=== PATIENT | male | born 1955 | race Caucasian/White ===

== ENCOUNTER 2018-03-28 18:48 | Emergency (ER) | payer OTHER ==
[~2018-03-28] VITALS: Ht 182.8 cm; Wt 113.4 kg
[~2018-03-28 18:48] MED LIST: ALBUTEROL0.09 MG/A2 IH; ASPIRIN81 M1 PO; NIASPAN500 MG PO; OMEPRAZOLE20 MG PO; SIMVASTATIN20 MG PO; TRICOR145 MG PO; VIBRAMYCIN100 MG PO
[2018-03-28] MEDS ORDERED: NORCO 5-325 TA1 EACH PO (20:41)
[2018-03-28] MEDS ORDERED: ZOFRAN4 MG PO (20:41)
[2018-03-28] MEDS ORDERED: AUGMENTIN 875875 MG PO (20:44)
== END 2018-03-28 21:05 | disposition home or self-care (01) ==
LOC: ED 18:48
DX: S02.2XXA Fracture of nasal bones, initial encounter for closed fracture (principal); S01.21XA Laceration without foreign body of nose, initial encounter; Z23 Encounter for immunization; Z79.899 Other long term (current) drug therapy; Z79.82 Long term (current) use of aspirin; W22.8XXA Striking against or struck by other objects, initial encounter; Y93.89 Activity, other specified; Y92.89 Other specified places as the place of occurrence of the external cause; Y99.8 Other external cause status

== ENCOUNTER → 2018-04-29 | Outpatient (CLI) | payer OTHER ==
[~2018-04-29] MED LIST changes: +AUGMENTIN 875875 MG PO; +NORCO 5-325 TA1 EACH PO; +ZOFRAN4 MG PO
[2018-04-29 10:25] LABS: BASO # 0.1 10*3/uL (0.0-0.1); BASO % 0.6 % (0.0-1.0); EOS # 0.1 10*3/uL (0.0-0.4); EOS % 1.8 % (1.0-4.0); HEMATOCRIT 48.4 % (42.0-52.0); HEMOGLOBIN 15.1 g/dl (14.0-18.0); LYMPH # 1.9 10*3/uL (1.3-4.4); LYMPH % 24.7 % (27.0-41.0); MEAN CELL VOLUME 89.8 fl (80.0-94.0); MEAN CORPUSCULAR HGB CONC 31.2 g/dl (33.0-37.0); MEAN PLATELET VOLUME 8.8 fl (9.6-12.3); MONO # 0.6 10*3/uL (0.1-1.0); MONO % 8.1 % (3.0-9.0); NEUT % 64.2 % (47.0-73.0); PLATELET COUNT AUTOMATED 328 10*3/uL (130-400); RED BLOOD COUNT 5.39 10*6/uL (4.50-5.90); RED CELL DISTRI WIDTH 14.6 % (0-14.5); WHITE BLOOD COUNT 7.8 10*3/uL (4.8-10.8)
[2018-04-29 10:52] LABS: ALBUMIN 3.9 gm/dl (3.1-4.5); ALKALINE PHOSPHATASE 50 U/L (45-117); BUN 18 mg/dl (7-24); CHLORIDE 109 mmol/L (98-107); CHOLESTEROL 111 mg/dL (<200); CREATININE 1.01 mg/dL (0.70-1.30); HDL CHOLESTEROL 38 mg/dl (40-60); LDL CHOLESTEROL 49 mg/dL (9-159); POTASSIUM 4.5 mmol/L (3.5-5.1); SGOT/AST 16 IU/L (3-35); SGPT/ALT 31 U/L (12-78); SODIUM 143 mmol/L (136-145); TOTAL PROTEIN 7.3 gm/dL (6.4-8.2); TRIGLYCERIDES 118 mg/dl (<150); VLDL CHOLESTEROL 24 mg/dL (6-40)
== END | disposition home or self-care (01) ==
LOC: LAB 09:43
PROVIDERS: Physician Assistant Medical
DX: Z12.5 Encounter for screening for malignant neoplasm of prostate (principal); E78.49 Other hyperlipidemia; I10 Essential (primary) hypertension; R73.01 Impaired fasting glucose

== ENCOUNTER 2019-02-19 04:53 | Inpatient (IN) | payer OTHER ==
[~2019-02-19] VITALS: Ht 185.4 cm; Wt 111.1 kg
[2019-02-19] VITALS (15 sets, daily range): BP systolic 92–142; BP diastolic 38–65
[~2019-02-19 04:53] MED LIST changes: +TRICOR145 M1 PO; -TRICOR145 MG PO
--- NOTE | 2019-02-19 05:10 | NUR ---
PATIENT REFUSED PAIN MEDCATION AT THIS TIME. DENIES PAIN STATES HE JUST FEELS UNCOMFORTABLE DUE TO BEING DISTENDED. DR FRAGA NOTIFIED OF THIS AND DILAUDID HELD.
--- NOTE | 2019-02-19 05:39 | NUR ---
PATIENT IN BED AOX4. TALKING WITH FAMILY AT BEDSIDE. NO DISTRESS NOTED. NORMAL SALINE RUNNING ON PRESSURE BAG AT THIS TIME. BP 92/49. RN WILL CONT TO MONITOR. DR FRAGA AWARE OF PRESSURE AT THIS TIME.
[2019-02-19 05:51] LABS: ALBUMIN 3.1 gm/dl (3.1-4.5); ALKALINE PHOSPHATASE 34 U/L (45-117); BUN 22 mg/dl (7-24); CHLORIDE 113 mmol/L (98-107); CREATININE 1.22 mg/dL (0.70-1.30); LIPASE 82 U/L (73-393); POTASSIUM 4.1 mmol/L (3.5-5.1); SGOT/AST 18 IU/L (3-35); SGPT/ALT 25 U/L (12-78); SODIUM 145 mmol/L (136-145); TOTAL PROTEIN 5.2 gm/dL (6.4-8.2)
[2019-02-19 05:54] LABS: BASO # 0.1 10*3/uL (0.0-0.1); BASO % 0.5 % (0.0-1.0); EOS # 0.2 10*3/uL (0.0-0.4); EOS % 1.6 % (1.0-4.0); HEMATOCRIT 26.7 % (42.0-52.0); HEMOGLOBIN 8.4 g/dl (14.0-18.0); LYMPH # 2.1 10*3/uL (1.3-4.4); LYMPH % 14.3 % (27.0-41.0); MEAN CELL VOLUME 92.1 fl (80.0-94.0); MEAN CORPUSCULAR HGB CONC 31.5 g/dl (33.0-37.0); MEAN PLATELET VOLUME 9.5 fl (9.6-12.3); MONO # 0.7 10*3/uL (0.1-1.0); MONO % 4.8 % (3.0-9.0); NEUT # 11.3 10*3/uL (2.3-7.9); NEUT % 77.5 % (47.0-73.0); PLATELET COUNT AUTOMATED 380 10*3/uL (130-400); RED CELL DISTRI WIDTH 15.1 % (0-14.5); WHITE BLOOD COUNT 14.6 10*3/uL (4.8-10.8)
[2019-02-19 05:59] LABS: TROPONIN I < 0.015 ng/ml (<0.045)
--- NOTE | 2019-02-19 06:00 | NUR ---
CRITICAL LAB LACTIC ACID 2.5. DR FRAGA NOTIFIED
--- NOTE | 2019-02-19 06:18 | NUR ---
PATIENT UP AND TO THE RESTROOM AT THIS TIME. AT RESTROOM WITH PATIENT. RN WILL CONT TO MONITOR. DENIES DIZZINESS AT THIS TIME.
[2019-02-19 06:45] LABS: ACT PARTIAL THROMBO TIME < 20.0 SECONDS (20.0-32.1)
[2019-02-19 13:06] LABS: HEMATOCRIT 24.7 % (42.0-52.0); HEMOGLOBIN 7.8 g/dl (14.0-18.0)
--- NOTE | 2019-02-19 14:20 | NUR ---
Time: 1419 A 63 year old MALE admitted to under services of JM TALAVERA DO. Pt. arrived via bed from ER. Chief complaint: ABDOMINAL PAIN. MAGGIE KRISHNA
--- NOTE | 2019-02-19 15:42 | NUR ---
Yarn Examiner Skeins in to talk to patient. Patient states lives at HOME with . There are FEW steps in the home. Physician: JUST CHANGED TO NEW ONE DOES NOT KNOW NAME. WILL FIND OUT AND LET ME KNOW TOMORROW Pharmacy: Home health services: NONE Patient's level of ADLs: INDEPENDENT Patient has working utilities: YES DME: NONE Follow-up physician's appointment after d/c: WILL BE MADE BY HOSPITALIST NURSE DIRECTOR ON DISCHARGE Does patient want to access PORTAL?: NO Discharge plan PT LIVES AT [facility] WITH HIS AND IS INDEPENDENT IN HIS CARE. DENIES HE WILL HAVE ANY NEEDS ON DISCHARGE. PLAN IS TO RETURN HOME WHEN MEDICALLY STABLE. WILL CONTINUE TO FOLLOW. STATES HE WILL HAVE A RIDE HOME.. DAT RAMSEY
--- NOTE | 2019-02-19 17:20 | NUR ---
PT TOLERATED IV ANTIBIOTIC WITH NO PROBLEM. NO C/O AT THIS TIME. IVF INFUSING WITH NO PROBLEM. CALL LIGHT IN REACH.
--- NOTE | 2019-02-19 19:16 | NUR ---
DR. WADE CALLED AWARE OF CONSULT.
--- NOTE | 2019-02-19 22:00 | NUR ---
PT RESTING COMFORTABLY AT THIS TIME. NO S/S OF DISTRESS. IV FLUIDS INFUSING PER ORDER. CALL LIGHT IN REACH.
[2019-02-20] VITALS: BP 144/64
--- NOTE | 2019-02-20 00:26 | NUR ---
24 HR chart check completed.
--- NOTE | 2019-02-20 02:30 | NUR ---
sleeping. No acute distress noted.
[2019-02-20 06:54] LABS: BASO # 0.1 10*3/uL (0.0-0.1); BASO % 0.6 % (0.0-1.0); EOS # 0.7 10*3/uL (0.0-0.4); EOS % 6.8 % (1.0-4.0); HEMATOCRIT 24.5 % (42.0-52.0); HEMOGLOBIN 7.6 g/dl (14.0-18.0); LYMPH # 2.2 10*3/uL (1.3-4.4); LYMPH % 22.2 % (27.0-41.0); MEAN CELL VOLUME 92.5 fl (80.0-94.0); MEAN CORPUSCULAR HGB 28.7 pg (27.0-31.0); MEAN PLATELET VOLUME 9.5 fl (9.6-12.3); MONO # 0.5 10*3/uL (0.1-1.0); MONO % 5.3 % (3.0-9.0); NEUT # 6.2 10*3/uL (2.3-7.9); NEUT % 63.6 % (47.0-73.0); PLATELET COUNT AUTOMATED 356 10*3/uL (130-400); RED BLOOD COUNT 2.65 10*6/uL (4.50-5.90); RED CELL DISTRI WIDTH 15.4 % (0-14.5); WHITE BLOOD COUNT 9.7 10*3/uL (4.8-10.8)
[2019-02-20 07:19] LABS: ALBUMIN 3.4 gm/dl (3.1-4.5); ALKALINE PHOSPHATASE 37 U/L (45-117); BUN 17 mg/dl (7-24); CHLORIDE 114 mmol/L (98-107); CREATININE 0.94 mg/dL (0.70-1.30); PHOSPHOROUS 2.5 mg/dL (2.5-4.9); POTASSIUM 3.8 mmol/L (3.5-5.1); SGOT/AST 14 IU/L (3-35); SGPT/ALT 22 U/L (12-78); SODIUM 143 mmol/L (136-145); TOTAL PROTEIN 5.7 gm/dL (6.4-8.2)
[2019-02-20 08:00] VITALS: BP 141/63
[2019-02-20] MEDS ORDERED: CIPRO500 MG PO (08:50)
[2019-02-20] MEDS ORDERED: FLAGYL500 MG PO (08:50)
--- NOTE | 2019-02-20 10:44 | NUR ---
Discharge instructions reviewed with patient/family. Patient receptive and verbalizes understanding. Follow-up care arranged. Written instructions given to patient/family. MONITOR ACCOUNTED FOR. IV TAKEN OUT. NEW PRESCRIPTIONS REVIEWED WITH PATIENT. NURYS RUEDA
== END 2019-02-20 10:44 | disposition home or self-care (01) | DRG 378 ==
LOC: ED 04:53 → 4E 13:36 → EDHOLD 13:36 → 4E 13:44
PROVIDERS: Emergency Medicine; Emergency Medicine Emergency Medical Services; Student in an Organized Health Care Education/Training Program; ADMIT Family Medicine
DX: K57.93 Diverticulitis of intestine, part unspecified, without perforation or abscess with bleeding (principal); E87.2 Acidosis; E44.0 Moderate protein-calorie malnutrition; D72.825 Bandemia; D64.89 Other specified anemias; E87.8 Other disorders of electrolyte and fluid balance, not elsewhere classified; K21.9 Gastro-esophageal reflux disease without esophagitis; K29.71 Gastritis, unspecified, with bleeding; E78.5 Hyperlipidemia, unspecified; J45.20 Mild intermittent asthma, uncomplicated; I10 Essential (primary) hypertension; E11.65 Type 2 diabetes mellitus with hyperglycemia; E11.69 Type 2 diabetes mellitus with other specified complication; E66.09 Other obesity due to excess calories; Z68.33 Body mass index [BMI] 33.0-33.9, adult; Z87.891 Personal history of nicotine dependence; Z82.61 Family history of arthritis; Z80.3 Family history of malignant neoplasm of breast; Z80.0 Family history of malignant neoplasm of digestive organs; Z79.899 Other long term (current) drug therapy

== ENCOUNTER 2019-02-25 16:16 | Inpatient (IN) | payer OTHER ==
[~2019-02-25] VITALS: Ht 182.9 cm; Wt 111.1 kg
[2019-02-25] VITALS (12 sets, daily range): BP systolic 84–120; BP diastolic 46–57
[~2019-02-25 16:16] MED LIST changes: +CIPRO500 MG PO; +FLAGYL500 MG PO
[2019-02-25 16:39] LABS: BASO # 0.1 10*3/uL (0.0-0.1); BASO % 0.4 % (0.0-1.0); EOS # 0.2 10*3/uL (0.0-0.4); EOS % 0.9 % (1.0-4.0); HEMATOCRIT 22.7 % (42.0-52.0); LYMPH # 1.7 10*3/uL (1.3-4.4); LYMPH % 9.3 % (27.0-41.0); MEAN CELL VOLUME 91.9 fl (80.0-94.0); MEAN CORPUSCULAR HGB 28.3 pg (27.0-31.0); MEAN CORPUSCULAR HGB CONC 30.8 g/dl (33.0-37.0); MEAN PLATELET VOLUME 9.4 fl (9.6-12.3); MONO # 0.9 10*3/uL (0.1-1.0); MONO % 5.1 % (3.0-9.0); NEUT # 14.9 10*3/uL (2.3-7.9); NEUT % 82.9 % (47.0-73.0); NUCLEATED RED BLOOD CELL 0.1 % (0.0-0.0); PLATELET COUNT AUTOMATED 488 10*3/uL (130-400); RED BLOOD COUNT 2.47 10*6/uL (4.50-5.90); RED CELL DISTRI WIDTH 15.2 % (0-14.5); WHITE BLOOD COUNT 17.9 10*3/uL (4.8-10.8)
[2019-02-25 16:56] LABS: ALBUMIN 3.4 gm/dl (3.1-4.5); ALKALINE PHOSPHATASE 39 U/L (45-117); BUN 23 mg/dl (7-24); CHLORIDE 113 mmol/L (98-107); CREATININE 1.15 mg/dL (0.70-1.30); POTASSIUM 4.2 mmol/L (3.5-5.1); SGOT/AST 21 IU/L (3-35); SGPT/ALT 26 U/L (12-78); SODIUM 142 mmol/L (136-145); TOTAL PROTEIN 5.6 gm/dL (6.4-8.2)
[2019-02-25 16:59] LABS: TROPONIN I < 0.015 ng/ml (<0.045)
--- NOTE | 2019-02-25 17:01 | NUR ---
LA 2.3 DR DICKSON NOTIFIED.
--- NOTE | 2019-02-25 17:09 | NUR ---
PT REPORTS NO CHANGE IN STATUS SINCE ARRIVAL PT SUPINE IN BED FAMILY AT BEDSIDE PT HAS NO REQUESTS AT THIS TIME
--- NOTE | 2019-02-25 17:30 | NUR ---
A 63, admitted to [facility], under the services of SOFI Hernandez DO with a diagnosis of GI BLEED, HEMMORAGIC SHOCK. Chief complaint is RECTAL BLEEDING. Patient arrived via stretcher from ER. Monitor applied. Initial assessment completed. Vital signs taken and recorded. SOFI HERNANDEZ DO notified of admission to the unit. Orders received. See assessment for past medical history, medications and allergies. Patient and/or family oriented to unit. [facility] visitation policy reviewed. Clothing/patient valuable form completed. LUCA WEST
[2019-02-25 17:32] LABS: ACT PARTIAL THROMBO TIME < 20.0 SECONDS (20.0-32.1)
[2019-02-25] MEDS ORDERED: SINGULAIR10 M1 PO (17:55)
[2019-02-25] MEDS ORDERED: ZESTRIL10 MG PO (17:55)
[2019-02-25] MEDS ORDERED: GLUCOPHAGE500 M1 PO (17:56)
[2019-02-25] MEDS ORDERED: NAPROSYN500 MG PO (17:59)
[2019-02-25] MEDS ORDERED: NIACIN500 M5 PO (17:59)
[2019-02-25] MEDS ORDERED: BREO ELLIPTA 21 EACH INH (18:00)
[2019-02-25] MEDS ORDERED: VENT7GM INH (18:01)
--- NOTE | 2019-02-25 18:04 | NUR ---
UNIT #1 BLOOD HUNG - TAR NOT WORKING - ALL INFORMATION CHECKED BY 2 NURSES & PAPER SIGNED. FAMILY AT BEDSIDE. PATIENT HAD REQUESTED THAT SIGN BLOOD CONSENT FOR HIM BUT HE VERBALLY AGREED WITH TRANSFUSION
--- NOTE | 2019-02-25 19:24 | NUR ---
spoke with Dr. Mccartney regarding critical lab result. patient condition reviewed. patient currently receiving blood. no further orders at this time.
--- NOTE | 2019-02-25 19:35 | NUR ---
DR DIAZ CALLED AND UPDATED ON CONDITION - BLOOD INFUSING VIA ASYMPTOMATIC SITE
[2019-02-25 21:46] LABS: BASO # 0.1 10*3/uL (0.0-0.1); BASO % 0.5 % (0.0-1.0); EOS # 0.1 10*3/uL (0.0-0.4); EOS % 0.4 % (1.0-4.0); HEMATOCRIT 23.2 % (42.0-52.0); HEMOGLOBIN 7.2 g/dl (14.0-18.0); LYMPH % 14.6 % (27.0-41.0); MEAN CELL VOLUME 93.5 fl (80.0-94.0); MEAN PLATELET VOLUME 9.4 fl (9.6-12.3); MONO # 0.9 10*3/uL (0.1-1.0); MONO % 6.3 % (3.0-9.0); NEUT # 10.4 10*3/uL (2.3-7.9); NEUT % 76.9 % (47.0-73.0); NUCLEATED RED BLOOD CELL 0.1 % (0.0-0.0); PLATELET COUNT AUTOMATED 392 10*3/uL (130-400); RED BLOOD COUNT 2.48 10*6/uL (4.50-5.90); RED CELL DISTRI WIDTH 15.1 % (0-14.5); WHITE BLOOD COUNT 13.5 10*3/uL (4.8-10.8)
--- NOTE | 2019-02-25 23:35 | NUR ---
2ND UNIT PRBC INITIATED. VERIFIED WITH JILLIAN PULLIAM.
[2019-02-26] VITALS (13 sets, daily range): BP systolic 94–140; BP diastolic 36–58
--- NOTE | 2019-02-26 01:41 | NUR ---
UNABLE TO TAKE ORTHOSTATIC BLOOD PRESSURES. PATIENT C/O DIZZINESS AND NAUSEA. ZOFRAN GIVEN. WILL CONTINUE TO MONITOR AND REASSESS.
[2019-02-26 05:11] LABS: BASO # 0.1 10*3/uL (0.0-0.1); BASO % 0.3 % (0.0-1.0); EOS # 0.1 10*3/uL (0.0-0.4); EOS % 0.3 % (1.0-4.0); HEMATOCRIT 23.7 % (42.0-52.0); HEMOGLOBIN 7.5 g/dl (14.0-18.0); LYMPH # 1.8 10*3/uL (1.3-4.4); LYMPH % 11.1 % (27.0-41.0); MEAN CORPUSCULAR HGB 28.5 pg (27.0-31.0); MEAN CORPUSCULAR HGB CONC 31.6 g/dl (33.0-37.0); MEAN PLATELET VOLUME 9.9 fl (9.6-12.3); MONO # 0.7 10*3/uL (0.1-1.0); MONO % 4.7 % (3.0-9.0); NUCLEATED RED BLOOD CELL 0.1 % (0.0-0.0); PLATELET COUNT AUTOMATED 374 10*3/uL (130-400); RED BLOOD COUNT 2.63 10*6/uL (4.50-5.90); RED CELL DISTRI WIDTH 15.3 % (0-14.5); WHITE BLOOD COUNT 15.9 10*3/uL (4.8-10.8)
[2019-02-26 05:24] LABS: BUN 22 mg/dl (7-24); CHLORIDE 119 mmol/L (98-107); CREATININE 1.06 mg/dL (0.70-1.30); MEAN CELL VOLUME 90.1 fl (80.0-94.0); PHOSPHOROUS 2.4 mg/dL (2.5-4.9); SODIUM 146 mmol/L (136-145)
--- NOTE | 2019-02-26 05:46 | NUR ---
SPOKE WITH DR. LITTLEJOHN ABOUT H&H RESULTS THIS MORNING. ORDERS RECEIVED TO TRANSFUSE ANOTHER UNIT.
--- NOTE | 2019-02-26 06:10 | NUR ---
BLOOD TRANSFUSION INITIATED AT THIS TIME. PATIENT TOLERATING WELL.
--- NOTE | 2019-02-26 07:23 | NUR ---
PER DR JOE COURTNEY SANDNAGI PARKER - - POSSIBLE SURGERY FOR EGD TODAY
[2019-02-26 08:00] LABS: BILIRUBIN NEGATIVE (NEGATIVE); BLOOD NEGATIVE (NEGATIVE); CLARITY CLEAR (CLEAR); COLOR YELLOW (YELLOW); GLUCOSE NEGATIVE (NEGATIVE); KETONE NEGATIVE (NEGATIVE); LEUKO ESTERASE NEGATIVE (NEGATIVE); NITRITE NEGATIVE (NEGATIVE); SPECIFIC GRAVITY >= 1.030 (1.005-1.030); UROBILINOGEN 0.2 E.U./dl (0.2-1.0)
--- NOTE | 2019-02-26 08:04 | NUR ---
SANDOSTATIN DRIP STARTED PER ORDER VIA ASYMPTOMATIC SITE
[2019-02-26 08:14] LABS: BACTERIA TRACE; HYALINE CAST 40-50; MUCOUS 1+
--- NOTE | 2019-02-26 08:40 | NUR ---
PHYSICAL THERAPY Screen received pt admitted from home with possible GI bleed, please consult PT if pt has a decline in functional status from baseline and is medically appropriate, thank you. Mercedes Abebe PT
--- NOTE | 2019-02-26 09:27 | NUR ---
DR DIAZ CALLED WITH [facility] WITH BRIGHT BLOOD NOW. REQUESTED DR SALGADO MAKE ARRANGEMENTS FOR TRANSFER TO [facility] - DR SALGADO MADE AWRE - DR DIAZ UNAVAILABLE UNTIL 6PM [facility]
--- NOTE | 2019-02-26 10:02 | NUR ---
ARRANGEMENTS BEING MADE AT [facility] PER FAMILY/PATIENT REQUEST SINCE [facility] HAS NO BEDS & UNABLE TO TRANSFER FOR OUT-PATIENT PROCEDURE.
--- NOTE | 2019-02-26 10:52 | NUR ---
RECEIVED CALL FROM [facility] - THEY ARE WORKING ON A BED AND WILL CALL ONCE THEY GET ONE. [facility] FAXED
[2019-02-26] MEDS ORDERED: PROTONIX40 M1 IV (10:54)
[2019-02-26] MEDS ORDERED: Carafate1 GM PO (10:54)
[2019-02-26 11:08] LABS: HEMATOCRIT 25.2 % (42.0-52.0); HEMOGLOBIN 8.1 g/dl (14.0-18.0)
--- NOTE | 2019-02-26 12:18 | NUR ---
[facility] HAS ACCEPTED THE PATIENT ROOM 3010 BED 15 AWAITING ETA FROM [facility]
--- NOTE | 2019-02-26 13:54 | NUR ---
PATIENT LEFT VIA [facility] - STABLE CONDITION..SANDOSTATIN DRIP INFUSING
== END 2019-02-26 14:26 | disposition short-term general hospital (02) | DRG 377 ==
LOC: ED 16:16 → ICCU 16:54 → EDHOLD 16:54 → ICCU 17:14
PROVIDERS: Emergency Medicine; Internal Medicine; Student in an Organized Health Care Education/Training Program; ADMIT Emergency Medicine
PROC: 30233N1 Transfusion of Nonautologous Red Blood Cells into Peripheral Vein, Percutaneous Approach (ICD-10-PCS; principal; 2019-02-25)
DX: K29.01 Acute gastritis with bleeding (principal); R57.8 Other shock; R65.10 Systemic inflammatory response syndrome (SIRS) of non-infectious origin without acute organ dysfunction; E44.0 Moderate protein-calorie malnutrition; E87.2 Acidosis; K57.91 Diverticulosis of intestine, part unspecified, without perforation or abscess with bleeding; D64.9 Anemia, unspecified; E87.8 Other disorders of electrolyte and fluid balance, not elsewhere classified; K21.9 Gastro-esophageal reflux disease without esophagitis; E11.69 Type 2 diabetes mellitus with other specified complication; J45.909 Unspecified asthma, uncomplicated; E83.39 Other disorders of phosphorus metabolism; E11.65 Type 2 diabetes mellitus with hyperglycemia; E78.5 Hyperlipidemia, unspecified; I10 Essential (primary) hypertension; E66.09 Other obesity due to excess calories; Z68.33 Body mass index [BMI] 33.0-33.9, adult; Z87.891 Personal history of nicotine dependence; Z82.49 Family history of ischemic heart disease and other diseases of the circulatory system; Z80.0 Family history of malignant neoplasm of digestive organs; Z80.3 Family history of malignant neoplasm of breast; Z82.61 Family history of arthritis; Z79.899 Other long term (current) drug therapy; Z79.84 Long term (current) use of oral hypoglycemic drugs